=== PATIENT | female | born 1995 ===

== ENCOUNTER 2025-01-28 06:27 | Day surgery (SDC) | payer OTHER ==
[2025-01-28] MEDS ORDERED: fentaNYL CITRATE 50 MCG/ML AMPUL IV PUSH ONE (09:00)
[2025-01-28] MEDS ORDERED: MIDAZOLAM HCL 2 MG/2 ML VIAL IV ONE (09:00)
[2025-01-28] MEDS ORDERED: DIPHENHYDRAMINE HCL 50 MG/ML VIAL 1ML IV ONE (09:00)
== END 2025-01-28 10:30 | disposition home or self-care (01) ==
LOC: AMB-ENDOS 06:27
PROVIDERS: ATTEND Colon & Rectal Surgery
DX: K62.5 Hemorrhage of anus and rectum (principal); Z85.3 Personal history of malignant neoplasm of breast